=== PATIENT | female | born 2000 | race Caucasian/White ===

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

== ENCOUNTER 2022-07-10 21:14 | Emergency (ER) | payer BC, OTHER ==
[2022-07-10 21:29] VITALS: BP 144/87; PULSE 82; RESP 20; TEMP 98.3
--- NOTE | 2022-07-10 21:55 | XR ---
EXAMINATION TYPE: XR hand complete RT DATE OF EXAM: 07/10/2022 COMPARISON: NONE HISTORY: Pain TECHNIQUE: 3 views FINDINGS: There is an acute nondisplaced intra-articular comminuted fracture of the base of the fifth metacarpal. No dislocation. There is mild soft tissue swelling. The carpal bones are intact. IMPRESSION: Acute proximal fifth metacarpal fracture.
[2022-07-10] MEDS ORDERED: KETOROLAC 15 MG/ML 1 ML VIAL IM STA (22:05)
[2022-07-10] MEDS ORDERED: HYDROcodone/APAP 5-325MG 1 EACH TAB PO STA (22:05)
[2022-07-10] MEDS ORDERED: IBUPROFEN 600 MG STARTER PACK 4 TAB BTL PO STA (22:06)
[2022-07-10] MEDS ORDERED: ACET/COD 300 MG/30 MG STARTER PACK 6 TAB BTL PO STA (22:06)
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
== END 2022-07-10 23:16 | disposition home or self-care (01) ==
LOC: EC 21:14
DX: S62.306A Unspecified fracture of fifth metacarpal bone, right hand, initial encounter for closed fracture (principal); F17.290 Nicotine dependence, other tobacco product, uncomplicated; W22.8XXA Striking against or struck by other objects, initial encounter
CPT/HCPCS: 73130; 99284; 96372; 29125; J1885